=== PATIENT | female | born 1980 | race Two or more races ===

== ENCOUNTER 2016-12-21 12:14 | Emergency (ER) | payer OTHER ==
[~2016-12-21] VITALS: Ht 160 cm; Wt 85.3 kg
[2016-12-21 15:30] VITALS: BP 110/67
== END 2016-12-21 16:06 | disposition home or self-care (01) ==
LOC: ED 12:14
DX: L50.9 Urticaria, unspecified (principal); R03.0 Elevated blood-pressure reading, without diagnosis of hypertension